=== PATIENT | male | born 1955 | race Caucasian/White ===

== ENCOUNTER → 2016-12-10 | Outpatient (CLI) | payer BC ==
[2016-12-10 11:55] LABS: Basophils # (A) 0.1 k/uL (0-0.2); Basophils % (A) 1 %; CH 32.7; CHCM 33.4; Eosinophils # (A) 0.4 k/uL (0-0.7); Eosinophils % (A) 6 %; HCT 49.9 % (39.0-53.0); HDW 2.46; HGB 16.2 gm/dL (13.0-17.5); Luc # (Auto) 0.28; Luc % (Auto) 4; Lymphocytes # (A) 1.6 k/uL (1.0-4.8); Lymphocytes % (A) 25 %; MCHC 32.5 g/dL (31.0-37.0); MCV 98.4 fL (80.0-100.0); Mean Platelet Volume 7.6; Monocytes # (A) 0.5 k/uL (0-1.0); Monocytes % (A) 8 %; Neutrophils # (A) 3.6 k/uL (1.3-7.7); Neutrophils % (A) 57 %; RBC 5.07 m/uL (4.30-5.90); RDW 12.9 % (11.5-15.5); WBC 6.4 k/uL (3.8-10.6); WBC (Perox) 6.36
--- NOTE | 2016-12-10 11:58 | XR ---
EXAMINATION TYPE: XR chest 2V DATE OF EXAM: 12/10/2016 11:42 AM HISTORY: F17.210 nicotine dependence. REFERENCE: NONE. FINDINGS: The heart is enlarged. The lungs are clear. Pleural spaces are clear. IMPRESSION: CARDIOMEGALY.
[2016-12-10 12:02] LABS: ALT 46 U/L (21-72); AST 30 U/L (17-59); Alkaline Phosphatase 68 U/L (38-126); Anion Gap 11 mmol/L; Blood Urea Nitrogen 19 mg/dL (9-20); Calcium 9.8 mg/dL (8.4-10.2); Carbon Dioxide 26 mmol/L (22-30); Chloride 104 mmol/L (98-107); Cholesterol 234 mg/dL (<200); Glucose 98 mg/dL (74-99); HDL Cholesterol 57 mg/dL (40-60); Non-African American GFR(MDRD) >60 (>60 ml/min/1.73 sqM); Potassium 4.8 mmol/L (3.5-5.1); Sodium 141 mmol/L (137-145); Total Bilirubin 0.6 mg/dL (0.2-1.3); Total Protein 7.2 g/dL (6.3-8.2); Triglycerides 148 mg/dL (<150)
[2016-12-10 12:05] LABS: Rheumatoid Factor, Qnt <9 IU/mL (<12)
[2016-12-10 13:36] LABS: Erythrocyte Sedimentation Rate 5 mm/hr (0-15)
[2016-12-10 14:17] LABS: Hemoglobin A1C 5.6 % (4.2-6.1)
[2016-12-10 21:12] LABS: ANA w/Reflex to Titer NEGATIVE (NEGATIVE)
== END | disposition home or self-care (01) ==
LOC: LABWHC1 11:19
PROVIDERS: ATTEND Family Medicine
DX: I51.7 Cardiomegaly (principal); Z00.00 Encounter for general adult medical examination without abnormal findings; F17.210 Nicotine dependence, cigarettes, uncomplicated; I10 Essential (primary) hypertension; L94.9 Localized connective tissue disorder, unspecified
CPT/HCPCS: 84439; 80061; 80053; 85652; 83036; 84443; 85025; 86431; 86038; 86225; 71020; 36415; G0103

== ENCOUNTER → 2025-02-19 | Outpatient (CLI) | payer MEDICARE ==
--- NOTE | 2025-02-24 16:29 | CTL ---
EXAMINATION TYPE: CT Low Dose Lung DATE OF EXAM: 02/19/2025 12:02 PM COMPARISON: None. SCREENING VISIT: Initial CT DIAGNOSTIC QUALITY: Satisfactory CLINICAL INDICATION: Male, 69 years old with history of Z12.2 ENCNTR SCREEN FO F17.210 NICOTINE DEPEN DENCE, , Lung cancer screening, History of tobacco use. TECHNIQUE: Low dose computed tomography scan was performed through the chest at 1 mm thick sections a nd reconstructed images in the coronal plane at 1 mm thick sections. Contrast used: mL of , (none if empty) Oral contrast used: (none if empty) CT DLP: 154.7 mGycm, Automated exposure control for dose reduction was used. CT CTDI: mGy, Automated exposure control for dose reduction was used. FINDINGS: LUNG NODULES: Present, detailed below: 1. Smooth bordered benign appearing 0.5 cm calcification anterior left lung. Series 4 image 145. 2. Triangular area of increased density along the lateral left lung margin near the base measuring 1. 8 x 1.5 cm. This area can be further evaluated with PET/CT. LUNGS: COPD: Severity: None Fibrosis: Severity: None Lymph nodes: None Other findings: None RIGHT PLEURAL SPACE: Effusion: None Calcification: None Thickening: None Pneumothorax: None LEFT PLEURAL SPACE: Effusion: None Calcification: None Thickening: None Pneumothorax: None HEART: Other: Ascending thoracic aorta at the level the main pulmonary artery measures 4.3 cm. The main pul monary artery at the bifurcation measures 2.8 cm. Heart Size: Normal Coronary calcification: Mild coronary artery calcifications present. Pericardial effusion: None OTHER FINDINGS: Upper abdomen: There is a nonobstructing superior pole left renal stone. Bony thorax: Normal Supraclavicular region: Normal IMPRESSION: 1. Soft tissue density at the left lateral lung base. Recommend PET/CT for additional workup. 2. Ascending thoracic aortic aneurysm 4.2 cm. 3. Nonobstructing superior pole left renal stone FOLLOW UP CT CHEST RECOMMENDATION: Follow up PET/CT CT LUNG RAD: Lung-Rad 4A Suspicious S modifier: Ascending thoracic aortic aneurysm [facility], , 02/24/2025 4:26 PM
== END | disposition home or self-care (01) ==
LOC: RADCTMAIN 11:01
PROVIDERS: ATTEND Internal Medicine
DX: Z12.2 Encounter for screening for malignant neoplasm of respiratory organs (principal); F17.210 Nicotine dependence, cigarettes, uncomplicated; I71.21 Aneurysm of the ascending aorta, without rupture; N20.0 Calculus of kidney; J98.4 Other disorders of lung
CPT/HCPCS: 71271

== ENCOUNTER → 2025-03-11 | Outpatient (CLI) | payer MEDICARE ==
--- NOTE | 2025-03-15 10:55 | PE ---
EXAMINATION TYPE: PET CT fusion skull to thigh DATE OF EXAM: 03/11/2025 COMPARISON: 02/19/2025 Prior PET/CT: No prior PET/CT this location CLINICAL INDICATION: Male, 69 years old with history of R91.8 Lung Mass, TECHNIQUE: Following the intravenous administration of 9.8 mCi of F-18 FDG, whole body images are pe rformed PET CT fusion skull to thigh. Images are reviewed on the computer in the coronal, axial, and sagittal planes. Reconstructed rotating images are created on independent workstation and reviewed on the computer. A localization and attenuation correction CT is performed in conjunction with the PET scan. DLP: 1576.8 mGycm SCAN: Initial Scan Blood glucose: 102 mg/dL Average Mediastinum SUV: 2.14 Average Liver SUV: 2.7 FINDINGS: NECK: No abnormal uptake THORAX: No suspicious uptake within a small nodule anterior right midlung. Image 1:15, SUV 0.62. Area of increased density along the lateral left lung sulcus has intermediate uptake measuring 1.66 S UV. ABDOMEN: No abnormal uptake PELVIS: No abnormal uptake OSSEOUS STRUCTURES: No abnormal uptake LOCALIZATION CT: Area of increased density at the left costophrenic angle sulcus has improved from th e comparison of 02/19/2025. Resolving infiltrate such as atelectasis or pneumonia likely within the dif ferential. Monitoring follow-up with CT can be performed. COMPARISON: Left lung base infiltrate appears resolving. IMPRESSION: 1. Resolving infiltrate at the left lung base. No suspicious residual radiotracer uptake evident. Tristin gallardo can be followed with CT Chest. [facility], , 03/15/2025 10:53 AM
== END | disposition home or self-care (01) ==
LOC: RADPETMAIN 06:30
PROVIDERS: ATTEND Internal Medicine
DX: R91.8 Other nonspecific abnormal finding of lung field (principal)
CPT/HCPCS: 78815; A9552